=== PATIENT | male | born 1995 | race African-American/Black ===

== ENCOUNTER 2019-04-14 12:27 | Emergency (ER) | payer OTHER ==
[~2019-04-14] VITALS: Ht 177.8 cm; Wt 95.5 kg
[2019-04-14 13:56] LABS: APPEARANCE, URINE CLEAR (CLEAR); BACTERIA, URINE AUTO NEGATIVE (NEGATIVE); BASO % 0.4 % (0.0-1.0); BILIRUBIN, URINE AUTO NEGATIVE (NEGATIVE); BLOOD, URINE BLOOD NEGATIVE (NEGATIVE); COLOR, URINE YELLOW (YELLOW); EOS # 0.2 10^3/uL (0.0-0.50); GLUCOSE, URINE (UA) AUTO NEGATIVE (NEGATIVE); HEMATOCRIT 46.3 % (42.0-52.0); HEMOGLOBIN 15.8 g/dl (13.5-17.5); KETONE, URINE AUTO NEGATIVE (NEGATIVE); LEUKOCYTE ESTERASE, URINE AUTO TRACE (NEGATIVE); LYMPH # 2.1 10^3/uL (1.5-6.5); LYMPH % 26.1 % (24.0-44.0); MEAN CORPUSCULAR HEMOGLOBIN 31.2 pg (27.0-33.0); MEAN CORPUSCULAR HGB CONC 34.1 g/dl (32.0-36.5); MEAN CORPUSCULAR VOLUME 91.5 fl (80.0-96.0); MONO # 0.7 10^3/uL (0.0-0.8); MONO % 7.9 % (0.0-5.0); NEUTROPHILS # 5.2 10^3/uL (1.8-7.7); NEUTROPHILS % 63.2 % (36.0-66.0); NITRITE, URINE AUTO NEGATIVE (NEGATIVE); PLATELET COUNT, AUTOMATED 278 10^3/uL (150-450); PROTEIN, URINE AUTO NEGATIVE (NEGATIVE); RBC, URINE AUTO 1 /HPF (0-3); RED BLOOD COUNT 5.06 10^6/uL (4.30-6.10); SPECIFIC GRAVITY URINE AUTO 1.016 (1.002-1.035); SQUAMOUS EPITHELIAL CELL UR AU 0 /HPF (0-6); UROBILINOGEN, URINE AUTO 0.2 mg/dL (0.0-2.0); WBC, URINE AUTO 7 /HPF (0-3); WHITE BLOOD COUNT 8.2 10^3/uL (4.0-10.0)
--- NOTE | 2019-04-14 14:17 | REP ---
Head CT without contrast: History: Headache. Comparison study: No comparison study. CT findings: Bone window settings demonstrate an intact bony calvarium. There is no evidence of skull fracture or incidental bony calvarial lesion. The visualized paranasal sinuses appear clear. No intraorbital abnormality is seen. On soft tissue window setting images; the lateral, third, and fourth ventricles are normal in size and position. Mcallister-white differentiation pattern is normal above and below the tentorium. There are is no evidence of intracranial hemorrhage. No mass, edema, infarction, or midline shift is seen. No extra-axial fluid collection is appreciated. Impression: Negative noncontrast head CT. Electronically Signed by Cyril Reid MD 04/14/2019 02:08 P
[2019-04-14 14:30] LABS: BLOOD UREA NITROGEN 11 MG/DL (7-18); CALCIUM LEVEL 9.7 MG/DL (8.5-10.1); CARBON DIOXIDE LEVEL 24 MEQ/L (21-32); CHLORIDE LEVEL 107 MEQ/L (98-107); CK-MB VALUE MASS 2.9 NG/ML (<3.6); CPK CREATINE PHOSPHOKINASE 814 U/L (39-308); GLOMERULAR FILTRATION RATE > 60.0 (>60); GLUCOSE, FASTING 80 MG/DL (70-100); MB/CK RELATIVE INDEX 0.36 (< OR =4); POTASSIUM SERUM 4.2 MEQ/L (3.5-5.1); SODIUM LEVEL 138 MEQ/L (136-145); TROPONIN I < 0.02 NG/ML (< 0.10)
[2019-04-14] MEDS ORDERED: amLODIPine 5 MG TAB PO ONE (14:45)
[2019-04-14] MEDS ORDERED: NORV5TAB PO (15:32)
[2019-04-14 15:39] VITALS: BP 139/93
--- NOTE | 2019-04-14 15:39 | REP ---
REASON: Hypertension. PRIORS: None. FINDINGS: The superior mediastinal structures are midline. The cardiac silhouette is unremarkable in size, shape, and position. The diaphragmatic surfaces of the lungs are regular, and the costophrenic angles are clear. The pulmonary finney are clear. The imaged osseous structures are intact. IMPRESSION: There is no acute cardiopulmonary disease. Electronically Signed by Ermias Pearl DO 04/14/2019 04:49 P
--- NOTE | 2019-04-14 20:47 | ECGEPIP ---
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
== END 2019-04-14 15:53 | disposition home or self-care (01) ==
LOC: M ED 12:27 → EDBD 12:27 → M ED 15:53
DX: I16.0 Hypertensive urgency (principal); F17.210 Nicotine dependence, cigarettes, uncomplicated

== ENCOUNTER 2019-05-18 23:29 | Inpatient (IN) | payer OTHER ==
[~2019-05-18] VITALS: Ht 177.8 cm; Wt 93.5 kg
[~2019-05-18 23:29] MED LIST: NORV5TAB PO
[2019-05-19 00:34] LABS: HEMATOCRIT 47.4 % (42.0-52.0); MEAN CORPUSCULAR HEMOGLOBIN 31.6 pg (27.0-33.0); MEAN CORPUSCULAR HGB CONC 33.8 g/dl (32.0-36.5); MEAN CORPUSCULAR VOLUME 93.5 fl (80.0-96.0); PLATELET COUNT, AUTOMATED 264 10^3/uL (150-450); RED BLOOD COUNT 5.07 10^6/uL (4.30-6.10); WHITE BLOOD COUNT 8.7 10^3/uL (4.0-10.0)
[2019-05-19 00:37] LABS: AMPHETAMINES LEVEL URINE NEGATIVE (NEGATIVE); BARBITURATES URINE NEGATIVE (NEGATIVE); BENZODIAZEPINES URINE NEGATIVE (NEGATIVE); CANNABINOIDS URINE NEGATIVE (NEGATIVE); METHADONE URINE NEGATIVE (NEGATIVE); OPIATES URINE NEGATIVE (NEGATIVE); PHENCYCLIDINE URINE NEGATIVE (NEGATIVE)
[2019-05-19 00:41] LABS: ACETAMINOPHEN LEVEL < 2.0 UG/ML (10.0-30.0); ALT/SGPT 51 U/L (12-78); BILIRUBIN,DIRECT < 0.1 MG/DL (0.0-0.2); BILIRUBIN,TOTAL 0.1 MG/DL (0.2-1.0); BLOOD UREA NITROGEN 10 MG/DL (7-18); CALCIUM LEVEL 9.1 MG/DL (8.5-10.1); CARBON DIOXIDE LEVEL 20 MEQ/L (21-32); CHLORIDE LEVEL 111 MEQ/L (98-107); CREATININE FOR GFR 0.96 MG/DL (0.70-1.30); ETHYL ALCOHOL (ETHANOL) 0.307 % (0.000-0.010); GLOMERULAR FILTRATION RATE > 60.0 (>60); GLUCOSE, FASTING 101 MG/DL (70-100); POTASSIUM SERUM 3.9 MEQ/L (3.5-5.1); SALICYLATE LEVEL 2.7 MG/DL (5.0-30.0); SODIUM LEVEL 142 MEQ/L (136-145); TOTAL PROTEIN 8.4 GM/DL (6.4-8.2)
[2019-05-19 00:50] LABS: COCAINE METABOLITE URINE NEGATIVE (NEGATIVE)
[2019-05-19] MEDS ORDERED: LORazepam 2 MG TAB PO PRN ×2 (07:15→17:30)
[2019-05-19] MEDS: MULTIVITAMINS/MINERALS THERAP 1 TAB PO SCH (09:57)
[2019-05-19] MEDS: THIAMINE 100 MG TAB PO SCH ×2 (09:57→21:28)
[2019-05-19] MEDS: FOLIC ACID 1 MG TAB PO SCH (09:57)
[2019-05-19] MEDS ORDERED: amLODIPine 5 MG TAB PO ONE (10:30)
[2019-05-19] MEDS: ONDANSETRON 4 MG ORAL DISINTEGRATING TAB (Q0162 PER 1MG) PO ONE ×2 (10:56→10:59)
[2019-05-19] MEDS ORDERED: AMLO5TAB6 PO (16:53)
[2019-05-19] MEDS ORDERED: ACETAMINOPHEN TAB 650MG DOSE (2X325MG) PO PRN (17:30)
[2019-05-19] MEDS ORDERED: MAALOX 30 ML SUSP *UDC PO PRN (17:30)
[2019-05-19] MEDS ORDERED: MOM 30ML SUSPENSION UDC PO PRN (17:30)
[2019-05-19] MEDS ORDERED: THIAMINE 100 MG TAB PO SCH (21:00)
[2019-05-19 23:11] VITALS: BP 150/88
[2019-05-19 23:30] VITALS: BP 150/88
[2019-05-20] MEDS: traZODone 50 MG TAB PO PRN ×2 (00:01→21:23)
--- NOTE | 2019-05-20 04:57 | ECGEPIP ---
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
[2019-05-20 07:01] VITALS: BP 129/73
[2019-05-20 08:00] VITALS: BP 140/74
[2019-05-20] MEDS: THIAMINE 100 MG TAB PO SCH ×3 (09:00→20:11)
[2019-05-20] MEDS: FOLIC ACID 1 MG TAB PO SCH ×2 (09:00→10:07)
[2019-05-20] MEDS: MULTIVITAMINS/MINERALS THERAP 1 TAB PO SCH ×2 (09:00→10:08)
--- NOTE | 2019-05-20 10:14 | HPEPDOC ---
General Date of Admission May 19, 2019 at 17:19 Date of Service: May 20, 2019 Attending Physician: SARA FELIPE MD Chief Complaint The patient is a 23-year-old male admitted with a reason for visit of Unspecified Depressive Disorder. Source: Patient Exam Limitations: No limitations Timing/Duration: Unsure Severity: Other (not applicable) Associated Symptoms: Other (not applicable ) History of Present Illness 23 years old -[place] male with past medical history of hypertension, was admitted to inpatient [facility] unit with homicidal and suicidal ideations. Patient offers no medical complaints. Denies any chest pain, shortness of breath, nausea, vomiting, diarrhea, abdominal pain, leg pain, allergies, etc. Home Medications Scheduled Amlodipine Besylate (Amlodipine Besylate) 5 Mg Tablet, 5 MG PO DAILY, (Reported) Allergies Coded Allergies: No Known Allergies (Unverified , 04/14/19) Past Medical History Medical History Hypertension Surgical History None Family History Significant Family History: No pertinent family hx, Other (. None) Social History * Smoker: other (. Patient smokes when he drinks alcohol which could be 2-3 cigarettes per day) Alcohol: heavy Drugs: denies A-FIB/CHADSVASC A-FIB History Current/History of A-Fib/PAF?: No Review of Systems Constitutional: Denies: Chills, Fever, Malaise, Night Sweats, Weakness, Fatigue, Weight Loss, Lethargy, Other Eyes: Denies: Pain, Vision change, Conjunctivae inflammation, Eyelid inflammation, Redness, Other ENT: Denies: Head Aches, Ear Pain, Dysphagia, Sinus Congestion, Post Nasal Drip, Sore Throat, Epistaxis, Other Symptoms Skin: Denies: Rash, Lesions, Jaundice, Bruising, Itching, Dry, Breakdown, Nail Changes, Other Pulmonary: Denies: Dyspnea, Cough, Pleuritic Chest Pain, Other Symptoms Cardiovascular: Denies: Chest Pain, Palpitations, Orthopnea, Paroxysmal Noc. Dyspnea, Edema, Lt Headedness, Other Symptoms Gastrointestinal: Denies: Nausea, Vomiting, Abdominal Pain, Diarrhea, Constipation, Melena, Hematochezia, Other Symptoms Genitourinary: Denies: Dysuria, Frequency, Incontinence, Hematuria, Retention, Other Symptoms Hematologic: Denies: Bruising, Bleeding Excessively, Petecchia, Purpura, Enlarged Lymph Nodes, Other Hematologic Endocrine: Denies: Polydipsia, Polyphagia, Polyuria, Heat Intolerance, Cold Intolerance, Other Endocrine Sx Musculoskeletal: Denies: Neck Pain, Back Pain, Shoulder Pain, Arm Pain, Hand Pain, Leg Pain, Foot Pain, Joint Pain, Muscle Pain, Spasms, Other Symptoms Neurological: Denies: Weakness, Numbness, Incoordination, Change in speech, Confusion, Seizures, Other Symptoms Psych: Denies: Mood Normal, Anxiety, Depression, Memory Issues, Thoughts of Self Harm, Anger, Thoughts of Harming Other, Other Psych Physical Examination General Exam: Positive: Alert, Cooperative Eye Exam: Positive: PERRLA, Conjunctiva & lids normal ENT Exam: Positive: Atraumatic, Mucous membr. moist/pink Neck Exam: Positive: Supple Chest Exam: Positive: Clear to auscultation Heart Exam: Positive: Rate Normal, Normal S1, Normal S2 Abdomen Exam: Positive: Normal bowel sounds, Soft, Tenderness Neuro Exam: Positive: Strength at 5/5 X4 ext, Sensation Intact Psych Exam: Positive: Mental status NL, Mood NL Vital Signs Vital Signs Date Time Temp Pulse Resp B/P (MAP) Pulse Ox O2 Delivery O2 Flow Rate FiO2 05/20/19 08:00 72 140/74 05/20/19 07:01 97.4 12 05/19/19 23:30 98 05/19/19 22:17 Room Air Problems (1) Hypertension Status: Chronic Problem Text: Patient with past medical history of hypertension on Norvasc 5 mg by mouth daily Patient. Blood pressure is still high with systolic between 140 and 150. We'll continue the home medication at the present dose Will follow patient along with you and adjust medication as CBC, CMP essentially within normal limits (2) Depression with suicidal ideation Status: Acute Problem Text: As per psychiatric recommendation Plan / VTE VTE Prophylaxis Ordered?: No VTE Exclusion Mechanical Proph: Low Risk for VTE VTE Exclusion Pharmacological: At Low Risk for VTE SARA FELIPE MD May 20, 2019 10:13
--- NOTE | 2019-05-20 11:03 | MHIPNPDOC ---
[facility] Progress Note Vital Signs Vital Signs Date Time Temp Pulse Resp B/P (MAP) Pulse Ox O2 Delivery O2 Flow Rate FiO2 05/20/19 08:00 72 140/74 05/20/19 07:01 97.4 12 05/19/19 23:30 98 05/19/19 22:17 Room Air Current Medications Current Medications Medications (Trade) Dose Ordered Sig/Ria Route PRN Reason Start Time Stop Time Status Last Admin Dose Admin Acetaminophen (Tylenol Tab) 650 mg Q6HP PRN PO HEADACHE or DISCOMFORT 05/19/19 17:30 Al Hydrox/Mg Hydrox/Simethicone (Mylanta) 30 ml Q4HP PRN PO HEARTBURN/INDIGESTION 05/19/19 17:30 Folic Acid (Folic Acid) 1 mg DAILY PO 05/19/19 09:00 05/20/19 09:54 DC 05/19/19 09:57 Folic Acid (Folic Acid) 1 mg DAILY PO 05/20/19 09:00 05/20/19 10:07 Home Med (Med Rec Complete!) ASDIRECTED XX 05/19/19 17:00 05/19/19 17:00 DC Lorazepam (Ativan) 2 mg ASDIRECTED PRN PO SEE PROTOCOL 05/19/19 07:15 05/20/19 09:54 DC Lorazepam (Ativan) 2 mg ASDIRECTED PRN PO SEE PROTOCOL 05/19/19 17:30 Magnesium Hydroxide (Milk Of Magnesia) 30 ml DAILYPRN PRN PO CONSTIPATION 05/19/19 17:30 Multivitamins (Theragram-M) 1 tab DAILY PO 05/19/19 09:00 05/20/19 09:55 DC 05/19/19 09:57 Multivitamins (Theragram-M) 1 tab DAILY PO 05/20/19 09:00 05/20/19 10:08 Thiamine HCl (Thiamine HCl) 100 mg BID PO 05/19/19 09:00 05/20/19 09:55 DC 05/19/19 21:28 Thiamine HCl (Thiamine HCl) 100 mg BID PO 05/19/19 21:00 05/19/19 21:00 DC Thiamine HCl (Thiamine HCl) 100 mg BID PO 05/20/19 09:00 05/21/19 21:01 05/20/19 10:08 Trazodone HCl (Desyrel) 50 mg QHSP PRN PO INSOMNIA 05/19/19 17:30 05/20/19 00:01 Allergies Coded Allergies: No Known Allergies (Unverified , 04/14/19) ALECIA WILLSON DO May 20, 2019 11:03
--- NOTE | 2019-05-20 12:14 | MHHPEPDOC ---
[facility] History & Physical History and Physical Date of Service: 05/20/2019 Chief Complaint "I just got really drunk." History of Present Illness The patient a 23-year-old man with a history of alcohol problems presents to [facility] after becoming heavily intoxicated and had reportedly got into an argument with his and had made various threats of wanting to end his life and had scratched himself in the throat superficially. However, he reports he does not remember this and he was highly intoxicated when he presented to the emergency room. When he had become more sober, he had denied any suicidal or homicidal ideation and described that his was quite supportive, but that he has a significant alcohol problem. When the patient was met with, he described that he does drink quite frequently and has reported that he has had some mood problems that have caused him to become more edgy and angry over the past month and a half. He's reportedly been struggling with a psychosocial stressor that his aunt, who was primary maternal figure, recently was in a severe car crash and he has not been able to care for her. He reports that since he was admitted that he's had no further symptoms and describes that he was unclear as to why he was admitted. Review Of Systems Depression: As above. No previous episodes. Anxiety: The patient denies any excessive worry associated with physical symptoms. They deny any experience of discreet panic in the past. Carmella: The patient denies any episodes of euphoria/dysphoria associated with decreased need for sleep, hedonism, talkatively or impulsivity lasting longer than 5 days. Psychotic: The patient denies any experiences of auditory or visual hallucinations. They deny any episodes of paranoia or delusional thinking in the past Trauma: The patient denies any traumatic events associated with nightmares or intrusive thoughts. Borderline: The patient screens negative for borderline personality at this junction. Past Psychiatric History The patient reports no history of psychiatric admissions, medication trials or current follow up. Allergies Please see below. Family Psychiatric History The patient denies/is unaware any history of mental health history including addictions and suicide. Social History The patient grew up in a reported family where his parents were and he was raised by his aunt and had grew up in the [place] area. He reported that he enjoyed school, played football in his freshman year and did academically fairly well. He has three siblings and talks primarily to his brother. 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 He has been together with his for the past 2-1/2 years. He has no biological children with her, however, he has a step-daughter who is 16 that lives with them. He has no biological children of his own. He reports never being deployed, no current legal charges. Reports primary stress relief through gym. Substance Abuse History Reports that he smokes tobacco with 4 cigarettes a day and drinks roughly several beers a day and binges at time with multiple amounts of alcohol, up to 8 drinks at a time. Denies any cannabis, opioid, stimulants or other use. Has not been in substance abuse treatment before. Medical History Hypertension. Mental Status Examination General: Well dressed with good hygiene Speech: Spontaneous and fluid Thought processes: Linear and logical MSK: Smooth and coordinated gait, no signs of tremors or involuntary orofacial movements Thought content: Future orientated Abstract reasoning, and computation: Intact Description of associations: Intact Description of abnormal or psychotic thoughts: Denies any suicidal or homicidal ideation. Denies any auditory or visual hallucinations. Does not appear to be responding to internal stimuli. Does not appear to be endorsing any bizarre or paranoid ideation. Judgment: fair Insight: fair Orientation: Alert and orientated 3 Cognition: Grossly normal Recent and remote memory: Intact Attention span and concentration: Intact Fund of knowledge: Adequate Mood: "okay" Affect: Euthymic with a full range Diagnoses Unspecified depressive disorder. Rule out adjustment versus substance-induced. Alcohol use disorder, severe. Tobacco use disorder, severe. Assessment and Plan The patient a 23-year-old man with a history of alcohol problems presents to [facility] after reportedly becoming extremely intoxicated, making various statements and superficially scratching his neck. After he's become sober, he denies any of these reports and collateral information supports that he has been trying to get into therapy but has generally been doing well otherwise than when he drinks. It's highly likely this episode is due to heavy intoxication. He requests to leave and will likely be discharged tomorrow. Further observation will be needed due to the scratching on the neck. He declines medications at this time. Disposition The patient will need a further inpatient admission, likely greater than 2 midnights in order to stabilize his alcohol withdrawal and address safety con cerns. Problem List 1. Risk for suicide. 2. Depression. 3. Substance abuse. Initial Treatment Plan 1. Patient was admitted on a 9.39 legal status. 2. Complete history was obtained. 3. With patients permission, family will be contacted and database will be expanded. 4. Patients medication regimen will be reviewed and changed accordingly. 5. Patient will be provided with protected environment. 6. Patient will be treated with individual, group, and milieu therapies. 7. Patient will receive supportive psych-education. 8. Discharge planning will commence immediately. 9. Outpatient follow-up treatment will be strongly recommended. 10. The initial treatment plan will focus initially on observation, supportive care. Estimated Length Of Stay 3 days. Time Spent 30 minutes [id number]. Sunday Vital Signs Vital Signs Date Time Temp Pulse Resp B/P (MAP) Pulse Ox O2 Delivery O2 Flow Rate FiO2 05/20/19 08:00 72 140/74 05/20/19 07:01 97.4 12 05/19/19 23:30 98 05/19/19 22:17 Room Air Medications Scheduled Amlodipine Besylate (Amlodipine Besylate) 5 Mg Tablet, 5 MG PO DAILY, (Reported) Allergies Coded Allergies: No Known Allergies (Unverified , 04/14/19) ALECIA WILLSON DO May 20, 2019 12:14
[2019-05-20] MEDS: amLODIPine 5 MG TAB PO SCH (15:12)
[2019-05-20 16:39] VITALS: BP 144/80
[2019-05-21 06:28] VITALS: BP 136/77
[2019-05-21] MEDS: THIAMINE 100 MG TAB PO SCH (08:41)
[2019-05-21 08:43] VITALS: BP 144/83
[2019-05-21] MEDS: FOLIC ACID 1 MG TAB PO SCH (08:43)
[2019-05-21] MEDS: MULTIVITAMINS/MINERALS THERAP 1 TAB PO SCH (08:43)
[2019-05-21] MEDS: amLODIPine 5 MG TAB PO SCH (08:43)
[2019-05-21] MEDS ORDERED: amLODIPine 5 MG TAB PO SCH (09:00)
--- NOTE | 2019-05-21 09:21 | MHDSPDOC ---
[facility] Discharge Summary Discharge Summary DATE OF ADMISSION: May 19, 2019 at 17:19 DATE OF DISCHARGE: 05/20/19 Date of Service: 05/21/2019 Diagnoses Unspecified depressive disorder. Rule out adjustment versus substance-induced. Alcohol use disorder, severe. Tobacco use disorder, severe. History of Present Illness The patient a 23-year-old man with a history of alcohol problems presents to [facility] after becoming heavily intoxicated and had reportedly got into an argument with his and had made various threats of wanting to end his life and had scratched himself in the throat superficially. However, he reports he does not remember this and he was highly intoxicated when he presented to the emergency room. When he had become more sober, he had denied any suicidal or homicidal ideation and described that his was quite supportive, but that he has a significant alcohol problem. When the patient was met with, he described that he does drink quite frequently and has reported that he has had some mood problems that have caused him to become more edgy and angry over the past month and a half. He's reportedly been struggling with a psychosocial stressor that his aunt, who was primary maternal figure, recently was in a severe car crash and he has not been able to care for her. He reports that since he was admitted that he's had no further symptoms and describes that he was unclear as to why he was admitted. Consultants Involved Hospitalist/PCP screening Treatment and Progress On The Unit The patient was admitted to the unit and subsequently observed. He had flatly denied any suicidal thoughts since his presentation to the unit. He was observed for 48 hours and had denied any suicidal ideation, had made no threats towards others. He was treated primarily supportive with sleeping medication, but was able to go to groups, was amenable in the unit with no behavioral problems. He requested discharge and at the time of discharge did meet involuntary criteria for the furtherance of his admission due to lack of suicidal ideation, homicidal ideation, no significant evidence of inability to take care of himself while on the unit in my clinical opinion. He declined further voluntary admission and was discharged in good yaniv. Discharge Assessment The patient, 23 year old with a history of significant alcohol problems presents to [facility] with likely mood problem secondary to his alcohol use that spontaneously resolves after his intoxication resolves, likely in the primary addictive sort rather than an underlying major depressive disorder. Mental Status Examination General: Well dressed with good hygiene Speech: Spontaneous and fluid Thought processes: Linear and logical MSK: Smooth and coordinated gait, no signs of tremors or involuntary orofacial movements Thought content: Future orientated Abstract reasoning, and computation: Intact Description of associations: Intact Description of abnormal or psychotic thoughts: Denies any suicidal or homicidal ideation. Denies any auditory or visual hallucinations. Does not appear to be responding to internal stimuli. Does not appear to be endorsing any bizarre or paranoid ideation. Judgment: fair Insight: fair Orientation: Alert and orientated 3 Cognition: Grossly normal Recent and remote memory: Intact Attention span and concentration: Intact Fund of knowledge: Adequate Mood: "okay" Affect: Euthymic with a full range Follow Up The social work team worked during the predischarge meeting in order to evaluate for further issues of lethality address them fully before discharge. They worked on safety planning with the patient's family members in order to ensure that the patient will have a safe and effective discharge. Time Spent The amount of time spent in the coordination of care for this patient was approximately 30 minutes. Sunday Vital Signs/I&Os Vital Signs Date Time Temp Pulse Resp B/P (MAP) Pulse Ox O2 Delivery O2 Flow Rate FiO2 05/21/19 08:43 80 144/83 05/21/19 06:28 98.5 16 05/19/19 23:30 98 05/19/19 22:17 Room Air Medications Scheduled Amlodipine Besylate (Amlodipine Besylate) 5 Mg Tablet, 5 MG PO DAILY, (Reported) Allergies Coded Allergies: No Known Allergies (Unverified , 04/14/19) ALECIA WILLSON DO May 21, 2019 09:21
== END 2019-05-21 12:15 | disposition home or self-care (01) | DRG 881 ==
LOC: M ED 23:29 → M ED INP 05-19 17:19 → M PSY 05-19 22:53
PROVIDERS: ADMIT Psychiatry & Neurology Psychiatry; ATTEND Psychiatry & Neurology Addiction Medicine
DX: F32.9 Major depressive disorder, single episode, unspecified (principal); F10.94 Alcohol use, unspecified with alcohol-induced mood disorder; F17.210 Nicotine dependence, cigarettes, uncomplicated; F43.20 Adjustment disorder, unspecified; I10 Essential (primary) hypertension; Z79.899 Other long term (current) drug therapy

== ENCOUNTER → 2020-06-28 | Outpatient (CLI) | payer OTHER ==
[~2020-06-28] MED LIST changes: +AMLO1TAB24 PO
--- NOTE | 2020-06-28 18:34 | REP ---
INDICATION: RADICULOPATHY T REGION. Patient relates history of and a remote injury in 2018 with heavy lifting. COMPARISON: No comparison imaging. . TECHNIQUE: Sagittal and axial T1 and T2-weighted scans are acquired in the usual fashion with and without fat saturation. Sequences include spin echo, turbo spin-echo, and STIR imaging sequences. FINDINGS: Thoracic vertebral body heights are preserved. Alignment is normal. Cortical and medullary bone signal intensity are intact intact and normal. The thoracic cord is normal in course, caliber and signal intensity on T1 and T2 weighted scans. No cord compressive lesion is seen. Disc spaces are maintained in height and signal intensity on T1 and T2 weighted scans. No disc protrusion is seen. No extra spinal abnormality is observed. IMPRESSION: Unremarkable MRI thoracic spine. No cord compressive lesion. <Electronically signed by Michael Reid > 06/28/20 [id number]
== END ==
LOC: M RAD 17:36
PROVIDERS: ATTEND Nurse Practitioner Family
DX: M54.10 Radiculopathy, site unspecified (principal)